=== PATIENT | male | born 1960 | race Caucasian/White ===

== ENCOUNTER 2017-06-26 10:23 | Emergency (ER) | payer OTHER ==
[2017-06-26 10:36] VITALS: BP 127/85; PULSE 83; TEMP 98.1; BMI 28.9
[2017-06-26] MEDS ORDERED: SODIUM CHLORIDE 1,000 ML IV STA (11:00)
[2017-06-26] MEDS ORDERED: morphine CARPU-JECT 2 MG/1 ML DISP.SYRIN IVPUSH ONE (11:03)
--- NOTE | 2017-06-26 11:06 | PDOC ---
History of Present Illness - General Chief Complaint: Pain Stated Complaint: LAB VARIANCE (PCP SENT) Time Seen by Provider: 06/26/17 10:43 - History of Present Illness Initial Comments: 06/26/17 11:03 56 year old M with pmh of seizure d/o on medication presenting with LLQ pain x 1 week. Pain is intermittent, sharp, nonradiating, 10/10, worse with movement. Patient endorses mild urinary frequency at night. Patient denies fever, chills, n/v/d/c, dysuria, hematuria, chest pain, sob. PSH: denies ALL: denies SH: Denies PCP: Dr. Daniel 06/26/17 11:06 Past History - Past Medical History Allergies/Adverse Reactions: Allergies Allergy/AdvReac Type Severity Reaction Status Date / Time No Known Allergies Allergy Verified 06/26/17 10:36 Home Medications: Ambulatory Orders Divalproex Sodium [Depakote] 500 mg PO BID 12/03/12 Lisinopril/Hydrochlorothiazide [Zestoretic 20-12.5 Tablet] 1 each PO DAILY 12/03 Oxcarbazepine 300 mg PO BID 12/03/12 Ciprofloxacin [Cipro -] 500 mg PO BID #20 tablet 06/26/17 Metronidazole [Flagyl -] 500 mg PO Q8H #30 tablet 06/26/17 GI Disorders: Yes (DIVERTICULITIS--NEW DX) HTN: Yes Seizures: Yes - Suicide/Smoking/Psychosocial Hx Smoking Status: No Smoking History: Former smoker Have you smoked in the past 12 months: No Number of Cigarettes Smoked Daily: 0 If you are a former smoker, when did you quit?: 18 YRS Information on smoking cessation initiated: No Hx Alcohol Use: No Drug/Substance Use Hx: No Substance Use Type: None Review of Systems - Review of Systems Able to Perform ROS?: Yes Comments:: 06/26/17 11:04 GENERAL/CONSTITUTIONAL: No fever or chills. No weakness. HEAD, EYES, EARS, NOSE AND THROAT: No change in vision. No ear pain or discharge. No sore throat. CARDIOVASCULAR: No chest pain or shortness of breath RESPIRATORY: No cough, wheezing, or hemoptysis. GASTROINTESTINAL: No nausea, vomiting, diarrhea or constipation. +abdominal pain GENITOURINARY: No dysuria, +frequency, No hematuria MUSCULOSKELETAL: No joint or muscle swelling or pain. No neck or back pain. SKIN: No rash NEUROLOGIC: No headache, vertigo, loss of consciousness, or change in strength/ sensation. ENDOCRINE: No increased thirst. No abnormal weight change HEMATOLOGIC/LYMPHATIC: No anemia, easy bleeding, or history of blood clots. ALLERGIC/IMMUNOLOGIC: No hives or skin allergy. *Physical Exam - Vital Signs Last Vital Signs Temp Pulse Resp BP Pulse Ox 98.1 F 83 20 127/85 97 06/26/17 10:32 06/26/17 10:32 06/26/17 10:32 06/26/17 10:32 06/26/17 10:32 - Physical Exam Comments: 06/26/17 11:05 GENERAL: Awake, alert, and fully oriented, in no acute distress HEAD: No signs of trauma, normocephalic, atraumatic EYES: PERRLA, EOMI, sclera anicteric, conjunctiva clear ENT: Auricles normal inspection, hearing grossly normal, nares patent, oropharynx clear without exudates. Moist mucosa NECK: Normal ROM, supple, no lymphadenopathy, JVD, or masses LUNGS: No distress, speaks full sentences, clear to auscultation bilaterally HEART: Regular rate and rhythm, normal S1 and S2, no murmurs, rubs or gallops, peripheral pulses normal and equal bilaterally. ABDOMEN: Soft, +LLQ tenderness, normoactive bowel sounds. Mild guarding, no rebound. No masses EXTREMITIES: Normal inspection, Normal range of motion, no edema. No clubbing or cyanosis. NEUROLOGICAL: Cranial nerves II through XII grossly intact. Normal speech, no focal sensorimotor deficits SKIN: Warm, Dry, normal turgor, no rashes or lesions noted. ED Treatment Course - LABORATORY CBC & Chemistry Diagram: 06/26/17 11:24 06/26/17 11:24 - RADIOLOGY Radiology Studies Ordered: Category Date Time Status ABDOMEN & PELVIS CT WITH CONTR [CT] Stat CT Scan 06/26/17 11:00 Ordered Medical Decision Making - Medical Decision Making 06/26/17 11:06 56 year old M with pmh of seizure d/o on medication presenting with LLQ pain x 1 week. Plan: CBC, CMP, Lipase, UA, Ucx, IVF, Morphine, CT abd/pelvis w/ PO and IV contrast 10/21/17 15:39 CBC, CMP, UA, Lipase unremarkable. CT- acute diverticulitis. Patient stable for d/c with antibiotics and GI follow up. *DC/Admit/Observation/Transfer Diagnosis at time of Disposition: Diverticulitis Qualifiers: Diverticulitis site: unspecified part of intestinal tract Diverticulitis bleeding: without bleeding Diverticulitis complication: unspecified complication status Qualified Code(s): K57.92 - Diverticulitis of intestine, part unspecified, without perforation or abscess without bleeding - Discharge Dispostion Disposition: HOME Condition at time of disposition: Stable - Prescriptions Prescriptions: Ciprofloxacin [Cipro -] 500 mg PO BID #20 tablet Metronidazole [Flagyl -] 500 mg PO Q8H #30 tablet - Referrals Referrals: Itzel Daniel MD [Primary Care Provider] - Galo Dixon MD [Staff Physician] - - Patient Instructions Printed Discharge Instructions: DI for Diverticulitis Additional Instructions: Follow up with your primary care provider and administrative support assoc (A referral has been provided for you to Dr. Dixon). Take antibiotics as prescribed. If you have worsening abdominal pain, chest pain, or shortness of breath come back to the hospital immediately
--- NOTE | 2017-06-26 11:19 | PDOC ---
Attending Attestation - HPI HPI: 06/26/17 12:29 Patient is a 56 year old male with a significant past medical history of seizure disorder, HTN, who presents to the ED with complaints of abdominal pain that began 1 week ago. Patient reports abdominal pain began 1 week ago suddenly while at home. He reports abdominal pain is a sharp pain that is rated a 10/10 in intensity. Patient reports having intermittent urinary frequency at night. He reports experiencing intermittent cramping in his legs bilaterally this morning. Denies fever, chills. Denies coughing, vomiting. Denies dysuria, hematuria, constipation, diarrhea. Denies any other symptoms. Allergies: None Surgical history: None Social history: No smoking. No alcohol. No illicit drugs. PMD: Dr. Daniel. - Physicial Exam PE: 06/26/17 12:29 GENERAL: Awake, alert, and fully oriented, in no acute distress HEAD: No signs of trauma EYES: PERRLA, EOMI, sclera anicteric, conjunctiva clear ENT: Auricles normal inspection, hearing grossly normal, nares patent, oropharynx clear without exudates. Moist mucosa NECK: Normal ROM, supple, no lymphadenopathy, JVD, or masses LUNGS: Breath sounds equal, clear to auscultation bilaterally. No wheezes, and no crackles HEART: Regular rate and rhythm, normal S1 and S2, no murmurs, rubs or gallops ABDOMEN: +Mild superpubic tednerness. +LLQ tenderness. Soft, nontender, normoactive bowel sounds. No guarding, no rebound. No masses EXTREMITIES: Normal range of motion, no edema. No clubbing or cyanosis. No cords, erythema, or tenderness NEUROLOGICAL: Cranial nerves II through XII grossly intact. Normal speech, normal gait SKIN: Warm, Dry, normal turgor, no rashes or lesions noted. - Medical Decision Making 06/26/17 12:29 Documentation prepared by Bronson Nice, acting as medical chemist for Suad Sweeney DO, MD/. <Bronson Nice - Last Filed: 06/26/17 12:29> - Resident Resident Name: Ash Vick - ED Attending Attestation I have performed the following: I have examined & evaluated the patient, The case was reviewed & discussed with the resident, I agree w/resident's findings & plan, Exceptions are as noted - Medical Decision Making 06/26/17 11:19 I, Dr. Suad Sweeney, DO, attest that this document has been prepared under my direction and personally reviewed by me in its entirety. I further attest, that it accurately reflects all work, treatment, procedures and medical decision -making performed by me. 06/26/17 12:25 a/p: 56yo male with LLQ pain x days -poss diverticulitis vs ureteral stone -will check labs, ua, ct abd/pelvis -ivf hydration -pain control -reassess 06/26/17 14:51 pt with acute diverticulitis on ct. case discussed with Dr. Daniel who agrees with the plan to d/c home with oral abx. <Suad Sweeney - Last Filed: 06/26/17 15:14>
[2017-06-26] MEDS ORDERED: morphine CARPU-JECT 2 MG/1 ML DISP.SYRIN ONE (11:31)
[2017-06-26 11:58] LABS: BASOPHIL 1.2 % (0-2.0); EOSINOPHIL 3.2 % (0-4.5); MCH 31.3 pg (25.7-33.7); MCHC 34.7 g/dl (32.0-35.9); MEAN CELL VOLUME 90.2 fl (80-96); MEAN PLT VOLUME 9.9 fl (7.5-11.1); NEUTROPHILS 51.8 % (42.8-82.8); PLATELET COUNT 172 K/MM3 (134-434); RDW 13.5 % (11.9-15.9)
[2017-06-26 12:57] LABS: ALBUMIN 3.9 g/dl (3.4-5.0); ALK PHOS 66 U/L (45-117); ANION GAP 8 (8-16); BILIRUBIN,TOTAL 0.5 mg/dL (0.2-1.0); CO2 27 mmol/L (21-32); CREATININE 0.6 mg/dL (0.7-1.3); GLUCOSE,RANDOM 79 mg/dL (74-106); SGOT/AST 18 U/L (15-37); SGPT/ALT 41 U/L (12-78); TOT PROT 7.6 g/dl (6.4-8.2)
[2017-06-26 14:08] LABS: URINE APPEARANCE CLEAR; URINE BILIRUBIN NEGATIVE (NEGATIVE); URINE BLOOD NEGATIVE (NEGATIVE); URINE COLOR YELLOW; URINE GLUCOSE (UA) NEGATIVE (NEGATIVE); URINE KETONE NEGATIVE (NEGATIVE); URINE NITRITE NEGATIVE (NEGATIVE); URINE PROTEIN NEGATIVE (NEGATIVE); URINE UROBILINOGEN 4.0 E.U/dl mg/dL (0.2-1.0)
[2017-06-26] MEDS ORDERED: METRONIDAZOLE 500 MG PREMIXED 100 ML IVPB ONE ×2 (14:49→14:50)
[2017-06-26] MEDS ORDERED: CIPROFLOXACIN 400 MG/D5W 200 ML IVPB ONE (14:50)
[2017-06-26 18:25] LABS: URINE LEUK ESTERASE Negative (NEGATIVE)
== END 2017-06-26 15:51 | disposition home or self-care (01) ==
LOC: JER 10:23
PROC: 3E03329 Introduction of Other Anti-infective into Peripheral Vein, Percutaneous Approach (ICD-10-PCS; principal; 2017-06-26)
PROC: 3E03329 Introduction of Other Anti-infective into Peripheral Vein, Percutaneous Approach (ICD-10-PCS; 2017-06-26)
PROC: 3E033NZ Introduction of Analgesics, Hypnotics, Sedatives into Peripheral Vein, Percutaneous Approach (ICD-10-PCS; 2017-06-26)
DX: K57.90 Diverticulosis of intestine, part unspecified, without perforation or abscess without bleeding (principal); I10 Essential (primary) hypertension; Z86.69 Personal history of other diseases of the nervous system and sense organs; Z87.891 Personal history of nicotine dependence
CPT/HCPCS: 36415; 74177-TC; 80053; 81003; 83690; 85025; 87086; 96365; 96367; 96374; 99283-25

== ENCOUNTER 2019-08-30 10:07 | Emergency (ER) | payer OTHER ==
[2019-08-30 10:22] VITALS: BP 162/89; PULSE 84; TEMP 98.2
--- NOTE | 2019-08-30 10:41 | PDOC ---
History of Present Illness - General Chief Complaint: Ear Problem Stated Complaint: EARACHE Time Seen by Provider: 08/30/19 10:27 - History of Present Illness Initial Comments: 08/30/19 10:40 CHIEF COMPLAINT: L ear pain HISTORY OF PRESENT ILLNESS: 59 yo M with hx of HTN presents to fast track with pain to L ear since yesterday. Patient reports the pain is excruciating even after taking Naproxen today. Patient denies fever but reports swelling and 10/ 10 pain to L ear. Denies any nausea, vomiting, diarrhea. No recent travel or sick contacts. PAST MEDICAL HISTORY: Denies past medical history FAMILY HISTORY: Denies SOCIAL HISTORY: Denies tobacco, alcohol, illicit drug use. SURGICAL HISTORY: Denies ALLERGIES: No known drug allergies REVIEW OF SYSTEMS General/Constitutional: Denies fever or chills. Denies weakness, weight change. HEENT: Severe ear pain and swelling to L ear. Denies change in vision. Denies ear pain or discharge. Denies sore throat. Cardiovascular: Denies chest pain or shortness of breath. Respiratory: Denies cough, wheezing, or hemoptysis. Gastrointestinal: Denies nausea, vomiting, diarrhea or constipation. Denies rectal bleeding. Genitourinary: Denies dysuria, frequency, or change in urination. Musculoskeletal: Denies joint or muscle swelling or pain. Denies neck or back pain. Skin and breasts: Denies rash or easy bruising. Neurologic: Denies headache, vertigo, loss of consciousness, or loss of sensation. Psychiatric: Denies depression or anxiety. PHYSICAL EXAM General Appearance: Well-appearing, appropriately dressed. No apparent distress , no intoxication. HEENT: Bulging L TM with loss of landmarks, marked tenderness and swelling from left ear extending down to L jaw. Tenderness to L mastoid process. EOMI, PERRLA , pharynx normal. No conjunctival pallor. No photophobia, scleral icterus. Neck: Supple. Trachea midline. No tenderness, rigidity, carotid bruit, stridor , lymphadenopathy, or thyromegaly. Respiratory/Chest: Lungs CTAB. No shortness of breath, chest tenderness, respiratory distress, accessory muscle use. No crackles, rales, rhonchi, stridor , wheezing, dullness Cardiovascular: RRR. S1, S2. No JVD, murmur, bradycardia, tachycardia. Vascular Pulses: Dorsalis-Pedis (R): 2+, Dorsalis-Pedis (L): 2+ Gastrointestinal/Abdominal: Normal bowel sounds. Abdomen soft, non-distended. No tenderness or rebound tenderness. No organomegaly, pulsatile mass, guarding , hernia, hepatomegaly, splenomegaly. Lymphatic: No adenopathy, tenderness. Musculoskeletal/Extremities: Normal inspection. FROM of all extremities, normal capillary refill. Pelvis Stable. No CVA tenderness. No tenderness to extremities, pedal edema, swelling, erythema or deformity. Integumentary: Appropriate color, dry, warm. No cyanosis, erythema, jaundice or rash Neurologic: electronic court recorder II-XII intact. Fully oriented, alert. Appropriate mood/affect. Motor strength 5/5. No appreciable EOM palsy, facial droop or sensory deficit. 08/30/19 10:43 Past History - Past Medical History Allergies/Adverse Reactions: Allergies Allergy/AdvReac Type Severity Reaction Status Date / Time No Known Allergies Allergy Verified 08/30/19 10:18 Home Medications: Ambulatory Orders Divalproex Sodium [Depakote] 500 mg PO BID 12/03/12 Lisinopril/Hydrochlorothiazide [Zestoretic 20-12.5 Tablet] 1 each PO DAILY 12/03 Oxcarbazepine 300 mg PO BID 12/03/12 Aspirin [Aspirin EC] 81 mg PO DAILY 08/30/19 Hydrochlorothiazide 25 mg PO DAILY 08/30/19 Ibuprofen [Motrin -] 600 mg PO QID PRN #28 tablet 08/30/19 Tamsulosin HCl 0.4 mg PO DAILY 08/30/19 COPD: No GI Disorders: Yes (DIVERTICULITIS--NEW DX) HTN: Yes Seizures: Yes - Psycho Social/Smoking Cessation Hx Smoking Status: No Smoking History: Never smoked Have you smoked in the past 12 months: No Number of Cigarettes Smoked Daily: 0 If you are a former smoker, when did you quit?: 18 YRS Information on smoking cessation initiated: No Hx Alcohol Use: No Drug/Substance Use Hx: No Substance Use Type: None *Physical Exam - Vital Signs Last Vital Signs Temp Pulse Resp BP Pulse Ox 98.2 F 84 17 162/89 97 08/30/19 10:16 08/30/19 10:16 08/30/19 10:16 08/30/19 10:16 08/30/19 10:16 ED Treatment Course - LABORATORY CBC & Chemistry Diagram: 08/30/19 10:45 08/30/19 10:45 Medical Decision Making - Medical Decision Making 08/30/19 10:46 59 yo M with hx of HTN presents to fast track with pain to L ear since yesterday. Concern for mastoiditis. -labs -CT Patient transferred to main ED for workup, sign out given to VIJAYA Ha and NORBERT Meyers. Discharge - Discharge Information Problems reviewed: Yes Clinical Impression/Diagnosis: Ear pain, left Condition: Stable Disposition: HOME - Additional Discharge Information Prescriptions: Ibuprofen [Motrin -] 600 mg PO QID PRN #28 tablet PRN Reason: Pain - Follow up/Referral Referrals: Adrien King MD [Primary Care Provider] - Christiano Vicente MD [Staff Physician] - Call tomorrow Lopez,Nahum Atkinson MD [Staff Physician] - Call tomorrow - Patient Discharge Instructions Additional Instructions: Thank you for choosing [facility]. It was a pleasure taking care of you. You may take Motrin 600 mg every 6 hours by mouth as needed for mild to moderate pain. Take Motrin with food. You were referred to ENT Please call to make appointment Return to the Emergency Department if your symptoms worsen or persist, you have fever, increased swelling/redness or other concerning symptoms. - Post Discharge Activity
[2019-08-30] MEDS ORDERED: KETOROLAC TROMETHAMINE 30 MG/1 ML VIAL IVPUSH ONE (10:47)
[2019-08-30 10:48] VITALS: BMI 24.2
--- NOTE | 2019-08-30 10:51 | PDOC ---
*Physical Exam - Vital Signs Last Vital Signs Temp Pulse Resp BP Pulse Ox 98.2 F 84 17 162/89 97 08/30/19 10:16 08/30/19 10:16 08/30/19 10:16 08/30/19 10:16 08/30/19 10:16 - Physical Exam General Appearance: No: Apparent Distress HEENT: positive: Other (R ear unremarkable, L ear TM unremarkable, no canal narrowing noted, swelling around mastoid region with tenderness to site, no erythema) Respiratory/Chest: positive: Lungs Clear, Normal Breath Sounds. negative: Respiratory Distress Cardiovascular: positive: Regular Rhythm, Regular Rate, S1, S2. negative: Murmur Neurologic: positive: Alert ED Treatment Course - LABORATORY CBC & Chemistry Diagram: 08/30/19 10:45 08/30/19 10:45 Medical Decision Making - Medical Decision Making Patient signed out to me by BENEFIT AUTHORIZER Treasure Flood 59 y/o M hx of HTN, seizures presents with L ear pain from yesterday. Denies fever, ear drainage, cough, sore throat, sob, cp, abd pain, vomiting. Concern for possible mastoiditis based on exam Will get labs, CT mastoid w/ contrast, pain control 08/30/19 10:50 CT results: Impression: 1. No CT evidence of definite mastoiditis. 2. Findings suggest chronic bilateral maxillary and frontal sinusitis. 3. 1.5 cm left parotid nodule. Recommend further evaluation with a parotid sonogram. CT negative Will refer to ENT for further eval 08/30/19 13:45 Discharge - Discharge Information Problems reviewed: Yes Clinical Impression/Diagnosis: Ear pain, left Condition: Stable Disposition: HOME - Admission No - Additional Discharge Information Prescriptions: Ibuprofen [Motrin -] 600 mg PO QID PRN #28 tablet PRN Reason: Pain Prescription Drug Monitoring Program (I-STOP) results: I-STOP not reviewed - Follow up/Referral Referrals: Adrien King MD [Primary Care Provider] - Nahum Marroquin MD [Staff Physician] - Call tomorrow Christiano Vicente MD [Staff Physician] - Call tomorrow - Patient Discharge Instructions Additional Instructions: Thank you for choosing [facility]. It was a pleasure taking care of you. You may take Motrin 600 mg every 6 hours by mouth as needed for mild to moderate pain. Take Motrin with food. You were referred to ENT Please call to make appointment Return to the Emergency Department if your symptoms worsen or persist, you have fever, increased swelling/redness or other concerning symptoms. - Post Discharge Activity
[2019-08-30] MEDS ORDERED: KETOROLAC TROMETHAMINE 30 MG/1 ML VIAL ONE (10:53)
[2019-08-30 11:10] LABS: BASO % 0.8 % (0-2.0); EOS % 4.3 % (0-4.5); HEMATOCRIT 46.6 % (35.4-49); HEMOGLOBIN 16.3 GM/dL (11.7-16.9); MCH 31.6 pg (25.7-33.7); MEAN CELL VOLUME 90.4 fl (80-96); MEAN PLT VOLUME 9.9 fl (7.5-11.1); NEUT % 55.9 % (42.8-82.8); PLATELET COUNT 152 K/MM3 (134-434); RBC 5.16 M/mm3 (4.00-5.60); RDW 13.3 % (11.9-15.9); WHITE BLOOD COUNT 7.1 K/mm3 (4.0-10.0)
[2019-08-30 11:39] LABS: ALBUMIN 4.1 g/dl (3.4-5.0); BILIRUBIN,TOTAL 0.5 mg/dL (0.2-1); BLOOD UREA NITROGEN 9.6 mg/dL (7-18); CALCIUM 9.3 mg/dL (8.5-10.1); CREATININE 0.9 mg/dL (0.55-1.3); TOT PROT 7.8 g/dl (6.4-8.2)
== END 2019-08-30 14:01 | disposition home or self-care (01) ==
LOC: JER 10:07 → JERFT 10:07 → JER 14:01
PROC: 3E0333Z Introduction of Anti-inflammatory into Peripheral Vein, Percutaneous Approach (ICD-10-PCS; principal; 2019-08-30)
DX: H92.02 Otalgia, left ear (principal); J32.1 Chronic frontal sinusitis; J32.0 Chronic maxillary sinusitis; I10 Essential (primary) hypertension; G40.909 Epilepsy, unspecified, not intractable, without status epilepticus; K57.92 Diverticulitis of intestine, part unspecified, without perforation or abscess without bleeding
CPT/HCPCS: 36415; 70481-TC; 80053; 85025; 99281-25; Q9967

== ENCOUNTER 2022-09-02 04:13 | Day surgery (SDC) | payer OTHER ==
[2022-08-27 17:50] VITALS: BMI 27.6
[~2022-09-02 04:13] MED LIST: ACETAMINOPHEN 325 MG TABLET (FP) PO PRN
[2022-09-02] MEDS ORDERED: EPINEPHrine/PF 1 MG/1 ML (1:1,000) AMPULE ONE (07:14)
[2022-09-02] MEDS ORDERED: LIDOCAINE HCL/PF 2% SDV 5ML VIAL ONE (07:27)
[2022-09-02] MEDS ORDERED: BUPIVACAINE HCL/PF 0.75% 10 ML VIAL ONE (07:27)
[2022-09-02] MEDS ORDERED: LIDOCAINE HCL/PF 1% SDV 5ML VIAL ONE (07:28)
[2022-09-02] MEDS ORDERED: POVIDONE-IODINE 5% OPHTHALMIC PREP 30 ML SOLUTION ONE (07:28)
[2022-09-02] MEDS ORDERED: KETOROLAC TROMETHAMINE 0.5% EYE DROP 1 DROP DROPS ONE (07:57)
[2022-09-02] MEDS ORDERED: CYCLOPENTOLATE HCL 1% OPHTH SOLN 2 ML BOTTLE ONE (07:58)
[2022-09-02] MEDS ORDERED: TROPICAMIDE 1% OPHTH SOLN 15 ML BOTTLE ONE (07:58)
[2022-09-02] MEDS ORDERED: OFLOXACIN 0.3% OPHTHALMIC SOLUTION 5 ML BOTTLE ONE (07:58)
[2022-09-02] MEDS: PHENYLEPHRINE 2.5% OPHTH SOLN 15 ML BOTTLE OP SCH ×6 (08:05→09:50)
[2022-09-02] MEDS: CYCLOPENTOLATE HCL 1% OPHTH SOLN 2 ML BOTTLE OP SCH ×6 (08:05→09:50)
[2022-09-02] MEDS: TROPICAMIDE 1% OPHTH SOLN 15 ML BOTTLE OP SCH ×6 (08:05→09:50)
[2022-09-02] MEDS: KETOROLAC TROMETHAMINE 0.5% EYE DROP 1 DROP DROPS OP SCH ×6 (08:05→09:50)
[2022-09-02] MEDS: OFLOXACIN 0.3% OPHTHALMIC SOLUTION 5 ML BOTTLE OP SCH ×6 (08:05→09:50)
[2022-09-02 08:06] VITALS: RESP 20
[2022-09-02] MEDS ORDERED: PROPOFOL 20 ML ONE (10:12)
[2022-09-02] MEDS ORDERED: BUPIVACAINE HCL/PF 0.75% 10 ML VIAL RB ONE (10:16)
[2022-09-02] MEDS ORDERED: LIDOCAINE HCL/PF 2% SDV 5ML VIAL PNB ONE (10:16)
[2022-09-02] MEDS ORDERED: POVIDONE-IODINE 5% OPHTHALMIC PREP 30 ML SOLUTION OS ONE (10:18)
[2022-09-02] MEDS ORDERED: BSS (NA/CA/MG/K) BALANCED SALT SOLUTION OPHTH SOLN 15 ML BOTTLE OS ONE (10:26)
[2022-09-02] MEDS ORDERED: LIDOCAINE HCL 1% PRESERVATIVE FREE - 30ML VIAL IO ONE (10:27)
[2022-09-02] MEDS ORDERED: CHONDROITIN SU A/HYALUR SOD 1 KIT IO ONE (10:28)
[2022-09-02] MEDS ORDERED: EPINEPHrine/PF 1 MG/1 ML (1:1,000) AMPULE SQ ONE (10:33)
[2022-09-02 10:56] VITALS: TEMP 98
[2022-09-02 11:30] VITALS: BP 126/87; PULSE 62
== END 2022-09-02 11:34 | disposition home or self-care (01) ==
LOC: JASU-SURG 04:13
PROVIDERS: ATTEND Ophthalmology
PROC: 08RK3JZ Replacement of Left Lens with Synthetic Substitute, Percutaneous Approach (ICD-10-PCS; principal; 2022-09-02 10:00)
DX: H26.9 Unspecified cataract (principal)
CPT/HCPCS: 66984; V2632

== ENCOUNTER 2024-01-01 04:36 | Emergency (ER) | payer OTHER ==
[2024-01-01 04:45] VITALS: TEMP 98; BMI 29.6
[2024-01-01] MEDS ORDERED: LIDOCAINE HCL 2% JELLY 11 ML TP ONE (05:23)
[2024-01-01] MEDS ORDERED: ACETAMINOPHEN 325 MG TABLET (FP) ONE (05:36)
[2024-01-01] MEDS: ACETAMINOPHEN 325 MG TABLET (FP) PO ONE (05:48)
[2024-01-01 05:54] VITALS: BP 134/82; PULSE 86; RESP 18
[2024-01-01 06:34] LABS: EPI CELLS 19 /uL (0-25.1); HYALINE CASTS 1 /uL (0-3.1); PH,URINE 6.5 (5.0-8.0); URINE APPEARANCE CLEAR; URINE BACTERIA 10 /uL (0-1359); URINE BILIRUBIN NEGATIVE (NEGATIVE); URINE COLOR YELLOW; URINE GLUCOSE (UA) NEGATIVE (NEGATIVE); URINE KETONE TRACE (NEGATIVE); URINE LEUK ESTERASE NEGATIVE (NEGATIVE); URINE NITRITE NEGATIVE (NEGATIVE); URINE PROTEIN NEGATIVE (NEGATIVE); URINE RBC 122 /uL (0-23.9); URINE UROBILINOGEN 0.2 mg/dL (0.2-1.0); URINE WBC 15 /uL (0-25.8)
== END 2024-01-01 07:07 | disposition home or self-care (01) ==
LOC: JER 04:36
DX: R33.9 Retention of urine, unspecified (principal); N40.1 Benign prostatic hyperplasia with lower urinary tract symptoms
CPT/HCPCS: 81003; 87086; 99283-25

== ENCOUNTER 2024-03-30 18:07 | Emergency (ER) | payer OTHER ==
[2024-03-30 18:40] VITALS: BP 134/86; PULSE 108; RESP 16; TEMP 98.2; BMI 29.0
[2024-03-30] MEDS ORDERED: ACETAMINOPHEN INJECTION 100 ML IVPB ONE (19:50)
[2024-03-30] MEDS ORDERED: KETOROLAC TROMETHAMINE 15 MG/ML VIAL ONE (19:51)
[2024-03-30] MEDS ORDERED: ONDANSETRON 4 MG/2 ML VIAL ONE (19:51)
[2024-03-30] MEDS ORDERED: METHOCARBAMOL 500 MG TABLET ONE (19:51)
[2024-03-30] MEDS: ACETAMINOPHEN 1000 MG/100 ML BAG IVPB ONE (20:05)
[2024-03-30] MEDS: KETOROLAC TROMETHAMINE 15 MG/ML VIAL IVPUSH ONE (20:05)
[2024-03-30] MEDS: ONDANSETRON 4 MG/2 ML VIAL IVPUSH ONE (20:06)
[2024-03-30] MEDS: METHOCARBAMOL 500 MG TABLET PO ONE (20:06)
[2024-03-30] MEDS: LACTATED RINGERS SOLUTION 1000 ML INFUS.BAG IV ONE (20:06)
[2024-03-30 20:15] LABS: URINE APPEARANCE CLEAR; URINE BILIRUBIN NEGATIVE (NEGATIVE); URINE COLOR YELLOW; URINE GLUCOSE (UA) NEGATIVE (NEGATIVE); URINE KETONE NEGATIVE (NEGATIVE); URINE LEUK ESTERASE NEGATIVE (NEGATIVE); URINE NITRITE NEGATIVE (NEGATIVE); URINE PROTEIN NEGATIVE (NEGATIVE)
[2024-03-30 20:22] LABS: BASO % 0.2 % (0-2.0); EOS % 2.4 % (0-4.5); HEMATOCRIT 48.1 % (35.4-49); HEMOGLOBIN 16.9 GM/dL (11.7-16.9); LYMPH % 26.2 % (8-40); MCH 31.4 pg (25.7-33.7); MCHC 35.2 g/dl (32.0-35.9); MEAN PLT VOLUME 8.5 fl (7.5-11.1); MONO % 9.5 % (3.8-10.2); NEUT % 61.7 % (42.8-82.8); PLATELET COUNT 249 10^3/uL (134-434); RDW 13.5 % (11.9-15.9); WHITE BLOOD COUNT 12.4 K/mm3 (4.0-10.0)
[2024-03-30 20:31] LABS: POTASSIUM 4.7 mmol/L (3.5-5.1)
[2024-03-30 20:33] LABS: ALBUMIN 3.6 g/dl (3.4-5.0); BLOOD UREA NITROGEN 16.3 mg/dL (7-18); CALCIUM 9.3 mg/dL (8.5-10.1)
[2024-03-30 20:36] LABS: CREATININE 0.8 mg/dL (0.55-1.3)
[2024-03-30 20:38] LABS: BILIRUBIN,TOTAL 0.5 mg/dL (0.2-1); TOT PROT 7.3 g/dl (6.4-8.2)
[2024-03-30] MEDS ORDERED: AMOX TR/POT CLAV 875MG/125MG TABLETS (FP) ONE (22:25)
[2024-03-30] MEDS: AMOX TR/POT CLAV 875MG/125MG TABLETS (FP) PO ONE (22:26)
== END 2024-03-30 22:46 | disposition home or self-care (01) ==
LOC: JER 18:07
PROC: 3E033NZ Introduction of Analgesics, Hypnotics, Sedatives into Peripheral Vein, Percutaneous Approach (ICD-10-PCS; principal; 2024-03-30)
PROC: 3E0333Z Introduction of Anti-inflammatory into Peripheral Vein, Percutaneous Approach (ICD-10-PCS; 2024-03-30)
PROC: 3E033GC Introduction of Other Therapeutic Substance into Peripheral Vein, Percutaneous Approach (ICD-10-PCS; 2024-03-30)
DX: K57.32 Diverticulitis of large intestine without perforation or abscess without bleeding (principal); M51.16 Intervertebral disc disorders with radiculopathy, lumbar region; R10.32 Left lower quadrant pain; M54.50 Low back pain, unspecified; R11.0 Nausea; R35.0 Frequency of micturition; R25.2 Cramp and spasm; R00.0 Tachycardia, unspecified
CPT/HCPCS: 36415; 72131-TC; 74177-TC; 80053; 81003; 85025; 87086; 99285-25; J0131; Q9967

== ENCOUNTER 2024-07-04 17:28 | Emergency (ER) | payer OTHER ==
[2024-07-04 17:34] VITALS: BP 126/78; PULSE 79; RESP 16; TEMP 98.6; BMI 27.7
== END 2024-07-04 18:57 | disposition home or self-care (01) ==
LOC: JER 17:28
DX: R05.9 Cough, unspecified (principal); R09.81 Nasal congestion; R06.02 Shortness of breath; R19.7 Diarrhea, unspecified
CPT/HCPCS: 71046-TC-FY; 99283-25